=== PATIENT | female | born 1990 | race Caucasian/White ===

== ENCOUNTER → 2024-03-02 09:13 | Outpatient (REF) | payer BC, SELFPAY ==
[2024-03-02 12:13] LABS: HIV Combo Negative (Negative)
[2024-03-02 15:12] LABS: Syphilis/T. pallidum Ab Reflex Negative (Negative)
[2024-03-04 10:54] LABS: HCV Quant by NAAT IU/mL Not Detected; HCV Quant by NAAT Interp Not Detected (Not Detected); HCV Quant by NAAT Log IU/mL Not Detected log IU/mL
== END ==
LOC: REG 09:13
PROVIDERS: ATTENDING PHYSICIAN Advanced Practice Midwife
DX: Z11.3 Encounter for screening for infections with a predominantly sexual mode of transmission (principal)
CPT/HCPCS: 36415; 86780; 87389; 87522

== ENCOUNTER → 2024-09-21 07:20 | Outpatient (REF) | payer BC, SELFPAY ==
[2024-09-21 08:20] LABS: % Basophils 1.2 % (0-2); % Immature Granulocytes 0.2 % (0-0.5); % Monocytes 9.7 % (1.7-9.3); % Neutrophils 53.9 % (42.2-75.2); Absolute Basophils 0.1 10^3/uL (0-0.2); Absolute Eosinophils 0.1 10^3/uL (0-0.7); Absolute Lymphocytes 1.9 10^3/uL (1.2-3.4); Absolute Monocytes 0.6 10^3/uL (0.1-0.6); Absolute Neutrophils 3.2 10^3/uL (1.4-6.5); Hematocrit 40.1 % (37.0-47.0); Hemoglobin 13.3 g/dL (12.0-16.0); Mean Corp Hgb Conc. 33.2 g/dL (33.0-37.0); Mean Corpuscular Hgb 31.6 pg (27.0-31.0); Mean Corpuscular Volume 95.2 fL (81.0-99.0); Nucleated Red Blood Cells % 0 %; Platelet Count 318 10^3/uL (130-400); Red Blood Cell Count 4.21 10^6/uL (4.20-5.40); Red Cell Dist. Width 12.2 % (11.5-14.5); White Blood Cell Count 5.9 10^3/uL (4.8-10.8)
[2024-09-21 08:43] LABS: ALT (SGPT) 15 U/L (0-35); AST (SGOT) 16 U/L (14-36); Albumin 4.6 g/dl (3.5-5.0); Alkaline Phosphatase 61 U/L (38-126); Blood Urea Nitrogen 17 mg/dl (7-17); Calcium 9.4 mg/dl (8.4-10.2); Carbon Dioxide 28 mmol/L (22-30); Chloride 106 mmol/L (98-107); Glucose 89 mg/dl (70-99); HDL Cholesterol 59 mg/dl; LDL Cholesterol, Calculated 50 mg/dl; Potassium 4.2 mmol/L (3.5-5.1); Sodium 143 mmol/L (135-145); Total Bilirubin 1.3 mg/dl (0.2-1.3); Total Cholesterol 120 mg/dl (50-199); Total Protein 6.8 g/dl (6.3-8.2); Triglyceride 55 mg/dl (10-149); Very Low Density Lipoprotein 11 mg/dl (0-30); eGFR > 60.00
[2024-09-21 08:53] LABS: TSH Reflex To Free T4 3.19 uIU/ml (0.47-4.68)
[2024-09-21 09:29] LABS: Folate 6.8 ng/ml (2.76-20); Vitamin B12 278 pg/ml (239-931)
[2024-09-21 19:34] LABS: Prolactin 16.8 ng/ml (3.0-18.6)
== END ==
LOC: REG 07:20
PROVIDERS: ATTENDING PHYSICIAN Nurse Practitioner Adult Health
DX: Z76.89 Persons encountering health services in other specified circumstances (principal); Z00.00 Encounter for general adult medical examination without abnormal findings; Z13.29 Encounter for screening for other suspected endocrine disorder; Z13.220 Encounter for screening for lipoid disorders
CPT/HCPCS: 36415; 80053; 80061; 82607; 82746; 84146; 84443; 85025

== ENCOUNTER 2024-12-07 07:33 | Outpatient (RCR) | payer BC, SELFPAY | END 2024-12-07 23:59 | disposition home or self-care (01) | LOC: RPT 07:33 | PROVIDERS: ATTENDING PHYSICIAN Nurse Practitioner Adult Health | DX: N39.3 Stress incontinence (female) (male) (principal); Z73.6 Limitation of activities due to disability | CPT/HCPCS: 97163; 97530 ==

== ENCOUNTER → 2024-12-16 09:24 | Outpatient (REF) | payer BC, SELFPAY ==
[2024-12-19 08:13] LABS: Bacterial Vaginosis by TMA Negative; Candida glabrata by TMA Negative; Candida species by TMA Positive; Trichomonas vaginalis by TMA Negative
== END ==
LOC: CLAB 09:24
PROVIDERS: ATTENDING PHYSICIAN Nurse Practitioner Adult Health
DX: N89.8 Other specified noninflammatory disorders of vagina (principal)
CPT/HCPCS: 81513; 87481; 87661

== ENCOUNTER → 2024-12-30 12:25 | Outpatient (REF) | payer BC, SELFPAY ==
[2025-01-03 18:45] LABS: Chlamydia trachomatis by TMA Negative (Negative); Neisseria gonorrhoeae by TMA Negative (Negative); Specimen Source Vaginal
[2025-01-04 16:35] LABS: Bacterial Vaginosis by TMA Negative; Candida glabrata by TMA Negative; Candida species by TMA Negative; Trichomonas vaginalis by TMA Negative
== END ==
LOC: CLAB 12:25
PROVIDERS: ATTENDING PHYSICIAN Family Medicine
DX: N89.8 Other specified noninflammatory disorders of vagina (principal)
CPT/HCPCS: 81513; 87481; 87491; 87591; 87661

== ENCOUNTER → 2025-02-17 10:18 | Outpatient (REF) | payer BC, SELFPAY ==
[2025-02-17 11:47] LABS: HCG, Serum Qualitative Screen Negative
[2025-02-17 11:54] LABS: ALT (SGPT) 16 U/L (0-35); AST (SGOT) 17 U/L (14-36); Albumin 4.9 g/dl (3.5-5.0); Alkaline Phosphatase 66 U/L (38-126); HDL Cholesterol 68 mg/dl; LDL Cholesterol, Calculated 73 mg/dl; Total Protein 7.4 g/dl (6.3-8.2); Very Low Density Lipoprotein 15 mg/dl (0-30)
== END ==
LOC: REG 10:18
PROVIDERS: ATTENDING PHYSICIAN Physician Assistant Medical; FAMILY PHYSICIAN Nurse Practitioner Adult Health
DX: Z79.899 Other long term (current) drug therapy (principal)
CPT/HCPCS: 36415; 80061; 80076; 84703

== ENCOUNTER → 2025-03-27 08:45 | Outpatient (REF) | payer BC, SELFPAY | LOC: PAVMRI 08:45 | PROVIDERS: ATTENDING PHYSICIAN Physician Assistant; FAMILY PHYSICIAN Nurse Practitioner Adult Health | DX: M54.14 Radiculopathy, thoracic region (principal) | CPT/HCPCS: 72146 ==

== ENCOUNTER → 2025-03-28 08:25 | Outpatient (REF) | payer BC, SELFPAY ==
[2025-03-28 10:09] LABS: HCG, Urine Qualitative Screen Negative
== END ==
LOC: REG 08:25
PROVIDERS: ATTENDING PHYSICIAN Physician Assistant Medical; FAMILY PHYSICIAN Nurse Practitioner Adult Health
DX: Z79.899 Other long term (current) drug therapy (principal)
CPT/HCPCS: 81025

== ENCOUNTER → 2025-06-09 08:52 | Outpatient (REF) | payer BC, SELFPAY ==
[2025-06-09 11:47] LABS: ALT (SGPT) 16 U/L (0-35); AST (SGOT) 20 U/L (14-36); Albumin 4.7 g/dl (3.5-5.0); Alkaline Phosphatase 69 U/L (38-126); HDL Cholesterol 58 mg/dl; LDL Cholesterol, Calculated 89 mg/dl; Total Protein 7.6 g/dl (6.3-8.2); Very Low Density Lipoprotein 10 mg/dl (0-30)
[2025-06-09 12:31] LABS: Vitamin B12 520 pg/ml (239-931)
== END ==
LOC: REG 08:52
PROVIDERS: ATTENDING PHYSICIAN Physician Assistant Medical; FAMILY PHYSICIAN Nurse Practitioner Adult Health
DX: Z79.899 Other long term (current) drug therapy (principal); Z11.1 Encounter for screening for respiratory tuberculosis; E53.9 Vitamin B deficiency, unspecified
CPT/HCPCS: 36415; 80061; 80076; 82607; 86480